=== PATIENT | female | born 1950 | race African-American/Black ===

== ENCOUNTER 2018-01-07 10:52 | Inpatient (IN) | payer OTHER ==
[2018-01-07 17:44] VITALS: BMI 21.9
[2018-01-07 17:52] LABS: ALANINE AMINOTRANSFERASE 121 Units/L (12-78); ALBUMIN 3.3 g/dL (3.4-5.0); ALKALINE PHOSPHATASE 133 Units/L (46-116); ASPARTATE AMINO TRANSFERASE 74 Units/L (15-37); BLOOD UREA NITROGEN 16 mg/dL (7-18); CALCIUM 9.1 mg/dL (8.5-10.1); CARBON DIOXIDE 26.6 mmol/L (21-32); CHLORIDE 106 mmol/L (98-107); COR CA(FOR HYPOALB) 9.7 mg/dL (8.5-10.1); COR NA(FOR HYPERGLY) 143 mmol/L (136-145); CREATININE 0.71 mg/dL (0.55-1.02); SODIUM 142 mmol/L (136-145); TOTAL PROTEIN 8.2 g/dL (6.4-8.2); eGFR BLACK RACES > 60 (>60); eGFR NON BLACK RACES > 60 (>60)
[2018-01-07] MEDS: ECOTRIN TAB 325 MG PO SCH (17:59)
[2018-01-07] MEDS: NORVASC TAB 10 MG PO SCH (18:00)
[2018-01-07] MEDS: VITAMIN D3 PO SCH (18:00)
[2018-01-07] MEDS: ZESTRIL TAB 40 MG PO SCH (18:00)
[2018-01-07] MEDS: NORCO 10/325 TAB PO SCH ×2 (18:00→20:06)
[2018-01-07 18:18] LABS: BASOPHILS % (AUTO) 0.5 % (0.2-1.0); EOSINOPHILS # (AUTO) 0.4 x10^3/uL (0.0-0.2); EOSINOPHILS % (AUTO) 7.5 % (0.9-2.9); HEMOGLOBIN 11.3 g/dL (12.0-16.0); LYMPHOCYTES # (AUTO) 1.9 X10^3/uL (1.3-2.9); LYMPHOCYTES % (AUTO) 34.4 % (21.0-51.0); MEAN CORPUSCULAR HEMOGLOBIN 32.2 pg (27.0-34.0); MEAN CORPUSCULAR HGB CONC 34.3 g/dL (33.0-35.0); MEAN CORPUSCULAR VOLUME 93.9 fL (80.0-100.0); MEAN PLATELET VOLUME 6.7 fL (7.4-11.0); MONOCYTES # (AUTO) 0.5 x10^3/uL (0.3-0.8); MONOCYTES % (AUTO) 8.3 % (0.0-13.0); NEUTROPHILS # (AUTO) 2.7 x10^3/uL (2.2-4.8); NEUTROPHILS % (AUTO) 49.3 % (42.0-75.0); PLATELET COUNT 464 X10^3/uL (150.0-450.0); RED BLOOD COUNT 3.52 X10^6/uL (3.5-5.4); RED CELL DISTRIBUTION WIDTH 12.8 % (11.6-16.5); WHITE BLOOD COUNT 5.4 X10^3/uL (3.6-10.0)
[2018-01-07] MEDS: NS 1000 ML 1,000 ML IV SCH (18:46)
[2018-01-07] MEDS: COLACE CAP 100 MG PO PRN (20:06)
[2018-01-07] MEDS: ZANAFLEX PO SCH (20:06)
[2018-01-07] MEDS: LIPITOR TAB 40 MG PO SCH (20:06)
[2018-01-07] MEDS: MILK OF MAGNESIA PO PRN (20:06)
[2018-01-07] MEDS: KEPPRA TAB 500 MG PO SCH (20:07)
[2018-01-07 21:25] LABS: BILIRUBIN,URINE NEGATIVE (NEGATIVE); BLOOD/HEMOGLOBIN,URINE 1+ (NEGATIVE); GLUCOSE, URINE NEGATIVE (NEGATIVE); KETONES,URINE NEGATIVE (NEGATIVE); LEUKOCYTE ESTERASE ,URINE 1+ (NEGATIVE); NITRITES,URINE NEGATIVE (NEGATIVE); PROTEIN,URINE NEGATIVE (NEGATIVE); UROBILINOGEN,URINE 2+ (NORMAL)
[2018-01-07 21:32] LABS: APPEARANCE,URINE HAZY (CLEAR); COLOR,URINE YELLOW (YELLOW)
[2018-01-07 21:33] LABS: AMORPHOUS SEDIMENT,UR 3+ /HPF (NEGATIVE); BACTERIA,URINE TRACE /HPF (NEGATIVE); SQUAMOUS EPITHELIAL CELL,UR FEW /HPF (NEGATIVE)
[2018-01-08] MEDS: RESTORIL CAP 15 MG PO PRN ×2 (00:46→20:44)
[2018-01-08 05:22] LABS: BASOPHILS % (AUTO) 0.9 % (0.2-1.0); EOSINOPHILS # (AUTO) 0.4 x10^3/uL (0.0-0.2); EOSINOPHILS % (AUTO) 8.1 % (0.9-2.9); HEMATOCRIT 28.9 % (36.0-47.0); HEMOGLOBIN 9.9 g/dL (12.0-16.0); LYMPHOCYTES # (AUTO) 2.1 X10^3/uL (1.3-2.9); LYMPHOCYTES % (AUTO) 45.1 % (21.0-51.0); MEAN CORPUSCULAR HEMOGLOBIN 32.1 pg (27.0-34.0); MEAN CORPUSCULAR HGB CONC 34.2 g/dL (33.0-35.0); MEAN CORPUSCULAR VOLUME 93.8 fL (80.0-100.0); MEAN PLATELET VOLUME 6.9 fL (7.4-11.0); MONOCYTES # (AUTO) 0.3 x10^3/uL (0.3-0.8); MONOCYTES % (AUTO) 6.9 % (0.0-13.0); NEUTROPHILS # (AUTO) 1.8 x10^3/uL (2.2-4.8); PLATELET COUNT 393 X10^3/uL (150.0-450.0); RED BLOOD COUNT 3.08 X10^6/uL (3.5-5.4); RED CELL DISTRIBUTION WIDTH 12.8 % (11.6-16.5); WHITE BLOOD COUNT 4.7 X10^3/uL (3.6-10.0)
[2018-01-08 05:25] LABS: ALANINE AMINOTRANSFERASE 128 Units/L (12-78); ALBUMIN 2.5 g/dL (3.4-5.0); ALKALINE PHOSPHATASE 99 Units/L (46-116); ASPARTATE AMINO TRANSFERASE 86 Units/L (15-37); BLOOD UREA NITROGEN 14 mg/dL (7-18); CALCIUM 8.4 mg/dL (8.5-10.1); CHLORIDE 109 mmol/L (98-107); COR CA(FOR HYPOALB) 9.6 mg/dL (8.5-10.1); CREATININE 0.61 mg/dL (0.55-1.02); SODIUM 143 mmol/L (136-145); TOTAL PROTEIN 6.3 g/dL (6.4-8.2); eGFR BLACK RACES > 60 (>60); eGFR NON BLACK RACES > 60 (>60)
[2018-01-08] MEDS: NS 1000 ML 1,000 ML IV SCH ×2 (05:35→19:36)
[2018-01-08] MEDS: NORCO 10/325 TAB PO SCH (08:00)
[2018-01-08] MEDS: ECOTRIN TAB 325 MG PO SCH (09:25)
[2018-01-08] MEDS: KEPPRA TAB 500 MG PO SCH ×2 (09:25→20:42)
[2018-01-08] MEDS: ZESTRIL TAB 40 MG PO SCH (09:26)
[2018-01-08] MEDS: NORVASC TAB 10 MG PO SCH (09:27)
[2018-01-08] MEDS: VITAMIN D3 PO SCH (09:27)
[2018-01-08] MEDS: VOLTAREN 1 % GEL MULTI DOSE TUBE TOP SCH ×3 (13:15→20:45)
[2018-01-08] MEDS: NORCO 10/325 TAB PO PRN ×2 (13:28→19:36)
--- NOTE | 2018-01-08 20:27 | DR.H&P ---
H&P - History & Physical for Day of: H&P Date: 01/07/18 - Chief Complaint Chief Complaint: GENERALIZED WEAKNESS, PAIN, FALLS - Allergies Allergies/Adverse Reactions: Allergies Allergy/AdvReac Type Severity Reaction Status Date / Time No Known Drug Allergies Allergy Verified 01/07/18 16:43 - History of Present Illness History of Present Illness: IS A 67 YEAR OLD PATIENT OF OURS WHO PRESENTED TO THE OFFICE WITH AN INCREASE IN GENERALIZED WEAKNESS, INCREASED FALLS, AND AN INCREASE IN JOINT PAIN. PATIENTS DAUGHTER REPORTS THAT SHE HAS ALSO HAD INCREASED CONFUSION AND ALTERED MENTAL STATUS FOR APPROXIMATELY ONE WEEK. PATIENT CURRENTLY LIVES AT HOME WITH HER BAUTISTAER. PATIENT HAS A HISTORY SIGNIFICANT FOR CVA WITH LEFT SIDED WEAKNESS, SEIZURES, HTN, SLEEP APNEA, ARTHRITIS, HISTORY OF COLON CANCER, ANXIETY/DEPRESSION, AND CHOLECYSTECTOMY. AUDREY REPORTS THAT HER FIRST CVA WAS IN 2008 AND HER MOST RECENT CVA WAS IN SEPTEMBER 2017. PATIENTS DAUGHTER REPORTS THAT SHE IS HAVING DIFFICULTY CONTINUING TO CARE FOR PATIENT AT HOME AND REQUEST PLACEMENT IN A SNF CARE FACILITY. ON EXAMINATION, DECREASED SKIN TURGOR IS NOTED. HEART IS REGULAR IN RATE AND RHYTHM. BILATERAL LUNGS ARE NOTED WITH DIMINISHED LUNG SOUNDS THROGHOUT. ABDOMEN IS ROUND, SOFT, AND NOTED WITH MILD SUPRAPUBIC TENDERNESS. NORMAL BOWEL SOUNDS NOTED IN ALL QUADRANTS. SHE IS NOTED WITH MODERATE WEAKNESS TO THE LEFT UPPER AND LEFT LOWER EXTREMITY. WE PLAN TO ADMIT PATIENT FOR FURTHER EVALUATION AND TREATMENT. WE WILL OBTAIN LABS ON ADMISSION. SHE WILL BE START ON NORMAL SALINE AT 75ML/HR AND WE WILL RESUME HER HOME MEDICATIONS. OTHERWISE, WE WILL FOLLOW UP WITH AM LABS AND CONTINUE TO MONITOR PATIENT. - Past Medical History Past Medical History: Anxiety, Arthritis, CVA, Depression, Hypertension, Seizures, Sleep Apnea Additional Medical History: COLON CANCER - Past Surgical History Surgical History: Cholecystectomy Additional Surgical History: COLON CANCER REMOVED - Family History Family Medical History: Diabetes Mellitus, Hypertension - Social History Does patient currently use any type of tobacco product: No Have you used tobacco products in the last 12 months: No Type of Tobacco Use: None Does any household member use tobacco: No Alcohol Use: None Drug Use: None - Medications Home Medications: Amlodipine Besylate 1 tab PO DAILY 01/07/18 [History Confirmed 01/07/18] Aspirin EC [ASPIRIN EC 81 MG *] 1 tab PO DAILY 01/07/18 [History Confirmed 01/07] Baclofen 1 tab PO TID 01/07/18 [History Confirmed 01/07/18] Cholecalciferol [Vitamin D3] 1 tab PO DAILY 01/07/18 [History Confirmed 01/07/18 ] Gabapentin [NEURONTIN CAP 300 mg *] 1 tab PO TID 01/07/18 [History Confirmed ] Hydrocodone-Acet 10/325 mg [NORCO 10 MG/325 MG *] 1 tab PO TID PRN 01/07/18 [ History Confirmed 01/07/18] Levetiracetam [Keppra 750 mg] 1 tab PO BID 01/07/18 [History Confirmed 01/07/18] Lisinopril [ZESTRIL *] 1 tab PO DAILY 01/07/18 [History Confirmed 01/07/18] Sennosides/Docusate Sodium [Docusate Sodium & Senna tab] 100 mg PO DAILY PRN [History Confirmed 01/07/18] Tizanidine HCl [Zanaflex 2 mg] 1 mg PO HS 01/07/18 [History Confirmed 01/07/18] - Review of Systems Constitutional: Weakness, Malaise. denies: Fever, Chills, Sweats Eyes: No Symptoms Reported ENT: No Symptoms Reported Respiratory: No Symptoms Reported. denies: Cough, Dry, Sputum, Wheezing Cardiovascular: No Symptoms Reported Gastrointestinal: Abdominal Pain Genitourinary: No Symptoms Reported Musculoskeletal: Other (LEFT ARM/LEG WEAKNESS FROM CVA, INCREASED JOINT PAIN ) Skin: No Symptoms Reported Neurological: No Symptoms Reported, Weakness - Physical Exam Vital Signs: Temperature 98.8 F Pulse Rate [Right Brachial] 52 Respiratory Rate 18 Blood Pressure [Right Arm] 159/86 O2 Sat by Pulse Oximetry 94 Oriented: Person Eyes: Normal Ear: Normal Nose: Normal Throat: Normal Respiratory: Diminished Throughout Cardiovascular: Normal. negative: S3, S4, Murmur, Edema : Normal Auscultation: Bowel Sounds: Normal Palpation: Normal Tenderness: Suprapubic, Mild. negative: Rebound, Guarding, Rigidity Skin: Decreased Turgur Musculoskeletal: Back:Lumbar, Tender (GENERALIZED JOINT PAIN ), Instability Psychiatric: Anxiety, Depression Mood Description: Anxious Affect: Anxious, Depressed Speech Pattern: Clear - Assessment/Plan (1) Generalized weakness Status: Acute Plan: ADMIT, NORMAL SALINE AT 75ML/HR, PHYSICAL THERAPY CONSULT (2) History of CVA with residual deficit Status: Acute Plan: PHYSICAL THERAPY CONSULT, CONTINUE HOME MEDICATIONS (3) Altered mental status Qualifiers: Altered mental status type: transient alteration of awareness Qualified Code(s): R40.4 - Transient alteration of awareness Status: Acute Plan: OBTAIN LABS, CONTINUE TO MONITOR (4) Joint pain Qualifiers: Joint pain location: unspecified Qualified Code(s): M25.50 - Pain in unspecified joint Status: Acute Plan: NORCO 10/325MG QID PRN, VOLTAREN GEL QID, CONTINUE TO MONITOR (5) Hypertension Qualifiers: Hypertension type: essential hypertension Qualified Code(s): I10 - Essential (primary) hypertension Status: Acute Plan: CONTINUE NORVASC, CONTINUE ZESTRIL, CONTINUE TO MONITOR
[2018-01-08] MEDS: MILK OF MAGNESIA PO PRN (20:42)
[2018-01-08] MEDS: COLACE CAP 100 MG PO PRN (20:43)
[2018-01-08] MEDS: LIPITOR TAB 40 MG PO SCH (20:44)
[2018-01-08] MEDS: ZANAFLEX PO SCH (20:45)
[2018-01-08] MEDS: LIORESAL PO SCH (21:02)
--- NOTE | 2018-01-08 22:25 | RAD ---
Chest, one view Indication: Shortness of breath Comparison: None Findings: Heart size is normal. There is mild peribronchial thickening. There is mild atelectasis wit hin the mid right lung. The remainder of the lungs are clear. No pleural effusion or pneumothorax adriano ntified. Impression: Mild peribronchial thickening, suggestive for bronchitis. Reported By:
[2018-01-09] MEDS: NORCO 10/325 TAB PO PRN ×2 (00:21→05:36)
[2018-01-09] MEDS: LIORESAL PO SCH ×3 (05:37→21:14)
[2018-01-09 06:23] LABS: BASOPHILS % (AUTO) 0.5 % (0.2-1.0); EOSINOPHILS # (AUTO) 0.2 x10^3/uL (0.0-0.2); EOSINOPHILS % (AUTO) 4.3 % (0.9-2.9); HEMATOCRIT 35.3 % (36.0-47.0); LYMPHOCYTES # (AUTO) 1.8 X10^3/uL (1.3-2.9); LYMPHOCYTES % (AUTO) 31.8 % (21.0-51.0); MEAN CORPUSCULAR HEMOGLOBIN 31.7 pg (27.0-34.0); MEAN CORPUSCULAR HGB CONC 33.9 g/dL (33.0-35.0); MEAN CORPUSCULAR VOLUME 93.4 fL (80.0-100.0); MEAN PLATELET VOLUME 6.8 fL (7.4-11.0); MONOCYTES # (AUTO) 0.3 x10^3/uL (0.3-0.8); MONOCYTES % (AUTO) 5.6 % (0.0-13.0); NEUTROPHILS # (AUTO) 3.3 x10^3/uL (2.2-4.8); NEUTROPHILS % (AUTO) 57.8 % (42.0-75.0); PLATELET COUNT 466 X10^3/uL (150.0-450.0); RED BLOOD COUNT 3.78 X10^6/uL (3.5-5.4); RED CELL DISTRIBUTION WIDTH 12.4 % (11.6-16.5); WHITE BLOOD COUNT 5.8 X10^3/uL (3.6-10.0)
[2018-01-09 06:31] LABS: ALANINE AMINOTRANSFERASE 119 Units/L (12-78); ALBUMIN 3.1 g/dL (3.4-5.0); ALKALINE PHOSPHATASE 105 Units/L (46-116); ASPARTATE AMINO TRANSFERASE 61 Units/L (15-37); BLOOD UREA NITROGEN 11 mg/dL (7-18); CALCIUM 8.9 mg/dL (8.5-10.1); CARBON DIOXIDE 26.7 mmol/L (21-32); CHLORIDE 103 mmol/L (98-107); COR CA(FOR HYPOALB) 9.6 mg/dL (8.5-10.1); CREATININE 0.64 mg/dL (0.55-1.02); SODIUM 139 mmol/L (136-145); TOTAL PROTEIN 7.7 g/dL (6.4-8.2); eGFR BLACK RACES > 60 (>60); eGFR NON BLACK RACES > 60 (>60)
[2018-01-09] MEDS: KEPPRA TAB 500 MG PO SCH ×2 (09:44→21:15)
[2018-01-09] MEDS: VITAMIN D3 PO SCH (09:45)
[2018-01-09] MEDS: NORVASC TAB 10 MG PO SCH (09:45)
[2018-01-09] MEDS: ZESTRIL TAB 40 MG PO SCH (09:45)
[2018-01-09] MEDS: ECOTRIN TAB 325 MG PO SCH (09:45)
[2018-01-09] MEDS: VOLTAREN 1 % GEL MULTI DOSE TUBE TOP SCH ×4 (09:46→21:18)
[2018-01-09] MEDS: NS 1000 ML 1,000 ML IV SCH (13:14)
[2018-01-09] MEDS: ZANAFLEX PO SCH (21:14)
[2018-01-09] MEDS: LIPITOR TAB 40 MG PO SCH (21:15)
[2018-01-10] MEDS: NS 1000 ML 1,000 ML IV SCH ×3 (04:36→23:50)
[2018-01-10 06:48] LABS: BASOPHILS # (AUTO) 0.1 X10^3/uL (0.0-0.1); BASOPHILS % (AUTO) 0.9 % (0.2-1.0); EOSINOPHILS # (AUTO) 0.5 x10^3/uL (0.0-0.2); EOSINOPHILS % (AUTO) 7.5 % (0.9-2.9); HEMATOCRIT 32.8 % (36.0-47.0); HEMOGLOBIN 10.9 g/dL (12.0-16.0); LYMPHOCYTES # (AUTO) 2.2 X10^3/uL (1.3-2.9); LYMPHOCYTES % (AUTO) 36.1 % (21.0-51.0); MEAN CORPUSCULAR HEMOGLOBIN 31.5 pg (27.0-34.0); MEAN CORPUSCULAR HGB CONC 33.3 g/dL (33.0-35.0); MEAN CORPUSCULAR VOLUME 94.8 fL (80.0-100.0); MEAN PLATELET VOLUME 7.9 fL (7.4-11.0); MONOCYTES # (AUTO) 0.6 x10^3/uL (0.3-0.8); MONOCYTES % (AUTO) 9.6 % (0.0-13.0); NEUTROPHILS # (AUTO) 2.8 x10^3/uL (2.2-4.8); NEUTROPHILS % (AUTO) 45.9 % (42.0-75.0); PLATELET COUNT 346 X10^3/uL (150.0-450.0); RED BLOOD COUNT 3.46 X10^6/uL (3.5-5.4); RED CELL DISTRIBUTION WIDTH 12.8 % (11.6-16.5)
[2018-01-10 07:01] LABS: ALANINE AMINOTRANSFERASE 89 Units/L (12-78); ALBUMIN 2.8 g/dL (3.4-5.0); ALKALINE PHOSPHATASE 92 Units/L (46-116); ASPARTATE AMINO TRANSFERASE 38 Units/L (15-37); BLOOD UREA NITROGEN 20 mg/dL (7-18); CARBON DIOXIDE 23.2 mmol/L (21-32); CHLORIDE 107 mmol/L (98-107); CREATININE 0.64 mg/dL (0.55-1.02); SODIUM 140 mmol/L (136-145); eGFR BLACK RACES > 60 (>60); eGFR NON BLACK RACES > 60 (>60)
[2018-01-10] MEDS: NORVASC TAB 10 MG PO SCH (09:41)
[2018-01-10] MEDS: VITAMIN D3 PO SCH (09:41)
[2018-01-10] MEDS: KEPPRA TAB 500 MG PO SCH ×2 (09:41→20:36)
[2018-01-10] MEDS: ECOTRIN TAB 325 MG PO SCH (09:41)
[2018-01-10] MEDS: ZESTRIL TAB 40 MG PO SCH (09:41)
[2018-01-10] MEDS: VOLTAREN 1 % GEL MULTI DOSE TUBE TOP SCH ×4 (09:42→20:37)
[2018-01-10] MEDS: LIORESAL PO SCH ×3 (14:06→21:30)
[2018-01-10] MEDS: NORCO 10/325 TAB PO PRN ×2 (14:08→20:38)
[2018-01-10] MEDS: LIPITOR TAB 40 MG PO SCH (20:36)
[2018-01-10] MEDS: RESTORIL CAP 15 MG PO PRN (20:38)
[2018-01-10] MEDS: ZANAFLEX PO SCH (20:38)
[2018-01-10] MEDS: MILK OF MAGNESIA PO PRN (20:47)
[2018-01-10] MEDS: COLACE CAP 100 MG PO PRN (20:48)
[2018-01-11] MEDS: LIORESAL PO SCH ×3 (05:24→21:00)
[2018-01-11] MEDS: NORCO 10/325 TAB PO PRN ×2 (05:57→14:38)
[2018-01-11 06:11] LABS: BASOPHILS % (AUTO) 0.5 % (0.2-1.0); EOSINOPHILS # (AUTO) 0.3 x10^3/uL (0.0-0.2); EOSINOPHILS % (AUTO) 6.2 % (0.9-2.9); HEMATOCRIT 32.6 % (36.0-47.0); HEMOGLOBIN 11.1 g/dL (12.0-16.0); LYMPHOCYTES # (AUTO) 2.3 X10^3/uL (1.3-2.9); LYMPHOCYTES % (AUTO) 44.9 % (21.0-51.0); MEAN CORPUSCULAR HEMOGLOBIN 31.8 pg (27.0-34.0); MEAN CORPUSCULAR VOLUME 93.5 fL (80.0-100.0); MEAN PLATELET VOLUME 6.9 fL (7.4-11.0); MONOCYTES # (AUTO) 0.3 x10^3/uL (0.3-0.8); MONOCYTES % (AUTO) 5.7 % (0.0-13.0); NEUTROPHILS # (AUTO) 2.2 x10^3/uL (2.2-4.8); NEUTROPHILS % (AUTO) 42.7 % (42.0-75.0); PLATELET COUNT 435 X10^3/uL (150.0-450.0); RED BLOOD COUNT 3.48 X10^6/uL (3.5-5.4); RED CELL DISTRIBUTION WIDTH 12.7 % (11.6-16.5); WHITE BLOOD COUNT 5.2 X10^3/uL (3.6-10.0)
--- NOTE | 2018-01-11 06:39 | RAD ---
HISTORY: Shortness of breath Study: Chest AP portable Comparison: 01/08/2018 Findings: The heart is mildly enlarged. No congestive heart failure is noted. No acute alveolar infiltrates are identified. No pleural effusions are present. There is subsegmental atelectasis in the right mid ranjan g abutting the minor fissure. There is minimal left lower lobe subsegmental atelectasis. There is fredy e mild peribronchial thickening suggestive of bronchitis unchanged from the prior examination. The mariia ny thorax is unremarkable. IMPRESSION: Mild cardiomegaly without congestive heart failure Mild peribronchial thickening suggestive of bronchitis Reported By:
[2018-01-11 06:40] LABS: ALANINE AMINOTRANSFERASE 82 Units/L (12-78); ALBUMIN 2.8 g/dL (3.4-5.0); ALKALINE PHOSPHATASE 96 Units/L (46-116); ASPARTATE AMINO TRANSFERASE 43 Units/L (15-37); BLOOD UREA NITROGEN 16 mg/dL (7-18); CALCIUM 8.5 mg/dL (8.5-10.1); CARBON DIOXIDE 26.7 mmol/L (21-32); CHLORIDE 107 mmol/L (98-107); COR CA(FOR HYPOALB) 9.5 mg/dL (8.5-10.1); CREATININE 0.56 mg/dL (0.55-1.02); SODIUM 141 mmol/L (136-145); TOTAL PROTEIN 7.1 g/dL (6.4-8.2); eGFR BLACK RACES > 60 (>60); eGFR NON BLACK RACES > 60 (>60)
--- NOTE | 2018-01-11 08:30 | PCM.PROG ---
Progress Note - Progress Note for Day of Date: 01/08/18 - Subjective Subjective: WAS ADMITTED FOR GENERALIZED WEAKNESS, INCREASED FALLS, ALTERED MENTAL STATUS, AND GENERALIZED PAIN. TODAY, SHE IS LYING IN BED ON MORNING ROUNDS. SHE IS ALERT TO PERSON, BUT IS NOT AWARE OF TIME OR HER LOCATION. SHE CONTINUES WITH COMPLAINTS OF PAIN ALL OVER. ON EXAMINATION, HEART IS REGULAR IN RATE AND RHYTHM. BILATERAL LUNGS ARE NOTED WITH DIMINISHED LUNG SOUNDS THROUGHOUT. ABDOMEN IS ROUND, SOFT, AND NOTED WITH MILD SUPRAPUYBID TENDERNESS. THERE IS WEAKNESS NOTED TO THE LEFT UPPER AND LOWER EXTREMITIES. THIS IS THE SIDE THAT THE STROKE AFFECTED. HER VITALS THIS MORNING ARE 98.2-56- 18-98%-130/60. LABS WERE OBTAINED. ABNORMAL LAB VALUES INCLUDE THE FOLLOWING: RBC 3.08, HGB 9.9, HCT 28.9, CHLORIDE 109, GLUCOSE 103, CALCIUM 8.4, AST 86, ALT 128, TOTAL PROTEIN 6.3, ALBUMIN 2.5. TODAY, WE WILL RESUME HOME MEDICATIONS AND START PATIENT ON A DURAGESIC 25MCG PATCH. OTHERWISE, WE WILL CONTINUE WITH CURRENT PLAN OF CARE. WE PLAN TO FOLLOW UP WITH AM LABS AND CONTINUE TO MONITOR PATIENT. - Past Medical Family Social History Past Med/Fam/Surg Hx: No changes since H&P Allergies: Allergies No Known Drug Allergies Allergy (Verified 01/07/18 16:43) - Review of Systems ROS: No change since H&P - Vital Signs and I&O's Vital Signs: Temperature 97.0 F Pulse Rate [Right Brachial] 46 Respiratory Rate 20 Blood Pressure [Right Arm] 164/72 O2 Sat by Pulse Oximetry 98 Intake and Output: Intake & Output 01/08/18 01/09/18 01/10/18 01/11/18 11:59 11:59 11:59 11:59 Intake Total 625 2100 1440 2683 Output Total 450 Balance 625 1650 1440 2683 - Physical Exam Oriented: Person Eyes: Normal Ear: Normal Nose: Normal Throat: Normal Respiratory: Generalized, Diminished Cardiovascular: Normal. negative: S3, S4, Murmur, Edema : Normal Auscultation: Bowel Sounds: Normal Palpation: Normal Tenderness: Suprapubic, Mild. negative: Rebound, Guarding, Rigidity Skin: Decreased Turgur Musculoskeletal: Back:Lumbar, Tender (GENERALIZED JOINT PAIN ), Instability Psychiatric: Anxiety, Depression Mood Description: Anxious Affect: Anxious, Depressed Speech Pattern: Clear, Appropriate - Laboratory and Diagnostics Result Diagrams: 01/11/18 05:49 01/11/18 05:49 Labs: Laboratory WBC 5.2 X10^3/uL (3.6-10.0) 01/11/18 05:49 RBC 3.48 X10^6/uL (3.5-5.4) L 01/11/18 05:49 Hgb 11.1 g/dL (12.0-16.0) L 01/11/18 05:49 Hct 32.6 % (36.0-47.0) L 01/11/18 05:49 MCV 93.5 fL (80.0-100.0) 01/11/18 05:49 MCH 31.8 pg (27.0-34.0) 01/11/18 05:49 MCHC 34.0 g/dL (33.0-35.0) 01/11/18 05:49 RDW 12.7 % (11.6-16.5) 01/11/18 05:49 Plt Count 435 X10^3/uL (150.0-450.0) 01/11/18 05:49 MPV 6.9 fL (7.4-11.0) L 01/11/18 05:49 Neut % (Auto) 42.7 % (42.0-75.0) 01/11/18 05:49 Lymph % (Auto) 44.9 % (21.0-51.0) 01/11/18 05:49 [place] % (Auto) 5.7 % (0.0-13.0) 01/11/18 05:49 Eos % (Auto) 6.2 % (0.9-2.9) H 01/11/18 05:49 Baso % (Auto) 0.5 % (0.2-1.0) 01/11/18 05:49 Neut # (Auto) 2.2 x10^3/uL (2.2-4.8) 01/11/18 05:49 Lymph # (Auto) 2.3 X10^3/uL (1.3-2.9) 01/11/18 05:49 [place] # (Auto) 0.3 x10^3/uL (0.3-0.8) 01/11/18 05:49 Eos # (Auto) 0.3 x10^3/uL (0.0-0.2) H 01/11/18 05:49 Baso # (Auto) 0.0 X10^3/uL (0.0-0.1) 01/11/18 05:49 Absolute Nucleated RBC 0.1 /100WBC 01/11/18 05:49 Sodium 141 mmol/L (136-145) 01/11/18 05:49 Corrected Sodium TNP 01/11/18 05:49 Potassium 4.0 mmol/L (3.5-5.1) 01/11/18 05:49 Chloride 107 mmol/L (98-107) 01/11/18 05:49 Carbon Dioxide 26.7 mmol/L (21-32) 01/11/18 05:49 BUN 16 mg/dL (7-18) 01/11/18 05:49 Creatinine 0.56 mg/dL (0.55-1.02) 01/11/18 05:49 Est GFR (MDRD) Af Amer > 60 (>60) 01/11/18 05:49 Est GFR (MDRD) Non-Af > 60 (>60) 01/11/18 05:49 Glucose 86 mg/dL (65-99) 01/11/18 05:49 Calcium 8.5 mg/dL (8.5-10.1) 01/11/18 05:49 Corrected Calcium 9.5 mg/dL (8.5-10.1) 01/11/18 05:49 Total Bilirubin 0.50 mg/dL (0.2-1.0) 01/11/18 05:49 AST 43 Units/L (15-37) H 01/11/18 05:49 ALT 82 Units/L (12-78) H 01/11/18 05:49 Alkaline Phosphatase 96 Units/L (46-116) 01/11/18 05:49 Total Protein 7.1 g/dL (6.4-8.2) 01/11/18 05:49 Albumin 2.8 g/dL (3.4-5.0) L 01/11/18 05:49 Globulin 4.3 g/dL (2.5-4.5) 01/11/18 05:49 Albumin/Globulin Ratio 0.7 Ratio (1.1-2.1) L 01/11/18 05:49 Specimen Type Clean catch urine 01/07/18 21:00 Urine Color Yellow (YELLOW) 01/07/18 21:00 Urine Appearance Hazy (CLEAR) 01/07/18 21:00 Urine pH 7.0 (5.0 - 8.0) 01/07/18 21:00 Ur Specific [place] 1.010 (1.000-1.030) 01/07/18 21:00 Urine Protein Negative (NEGATIVE) 01/07/18 21:00 Urine Glucose (UA) Negative (NEGATIVE) 01/07/18 21:00 Urine Ketones Negative (NEGATIVE) 01/07/18 21:00 Urine Occult Blood 1+ (NEGATIVE) 01/07/18 21:00 Urine Nitrite Negative (NEGATIVE) 01/07/18 21:00 Urine Bilirubin Negative (NEGATIVE) 01/07/18 21:00 Urine Urobilinogen 2+ (NORMAL) 01/07/18 21:00 Ur Leukocyte Esterase 1+ (NEGATIVE) 01/07/18 21:00 Urine RBC 3-5 /HPF (NONE SEEN) 01/07/18 21:00 Urine WBC 3-5 /HPF (NONE SEEN) 01/07/18 21:00 Ur Squamous Epith Cells Few /HPF (NEGATIVE) 01/07/18 21:00 Amorphous Sediment 3+ /HPF (NEGATIVE) 01/07/18 21:00 Urine Bacteria Trace /HPF (NEGATIVE) 01/07/18 21:00 Ur Culture Indicated? No/not indicated 01/07/18 21:00 - Plan (1) Generalized weakness Status: Acute Plan: ADMIT, NORMAL SALINE AT 75ML/HR, PHYSICAL THERAPY CONSULT (2) History of CVA with residual deficit Status: Acute Plan: PHYSICAL THERAPY CONSULT, CONTINUE HOME MEDICATIONS (3) Altered mental status Status: Acute Qualifiers: Altered mental status type: transient alteration of awareness Qualified Code(s): R40.4 - Transient alteration of awareness Plan: OBTAIN LABS, CONTINUE TO MONITOR (4) Joint pain Status: Acute Qualifiers: Joint pain location: unspecified Qualified Code(s): M25.50 - Pain in unspecified joint Plan: DURAGESIC PATCH 25MGC Q72HR, NORCO 10/325MG QID PRN, VOLTAREN GEL QID, CONTINUE TO MONITOR (5) Hypertension Status: Acute Qualifiers: Hypertension type: essential hypertension Qualified Code(s): I10 - Essential (primary) hypertension Plan: CONTINUE NORVASC, CONTINUE ZESTRIL, CONTINUE TO MONITOR
[2018-01-11] MEDS: ECOTRIN TAB 325 MG PO SCH (09:41)
[2018-01-11] MEDS: VOLTAREN 1 % GEL MULTI DOSE TUBE TOP SCH ×4 (09:42→20:57)
[2018-01-11] MEDS: ZESTRIL TAB 40 MG PO SCH (09:42)
[2018-01-11] MEDS: NORVASC TAB 10 MG PO SCH (09:42)
[2018-01-11] MEDS: KEPPRA TAB 500 MG PO SCH ×2 (09:42→20:57)
[2018-01-11] MEDS: VITAMIN D3 PO SCH (11:57)
[2018-01-11] MEDS: NS 1000 ML 1,000 ML IV SCH (14:40)
[2018-01-11] MEDS: LIPITOR TAB 40 MG PO SCH (20:59)
[2018-01-11] MEDS: ZANAFLEX PO SCH (20:59)
--- NOTE | 2018-01-11 21:08 | PCM.PROG ---
Progress Note - Progress Note for Day of Date: 01/11/18 - Subjective Subjective: WAS ADMITTED FOR GENERALIZED WEAKNESS, INCREASED FALLS, ALTERED MENTAL STATUS, AND GENERALIZED PAIN. TODAY, SHE IS LYING IN BED ON MORNING ROUNDS. SHE IS ALERT TO PERSON, BUT IS NOT AWARE OF TIME OR HER LOCATION. SHE CONTINUES WITH COMPLAINTS OF WEAKNESS AND GENERALIZED PAIN. STAFF REPORTS THAT PATIENTS HEART RATE HAS BEEN IN THE 40s AND HAS OCCASIONALLY FELL INTO THE 30s. THEY REPORT THAT PATIENT HAS BEEN ASYMPTOMATIC. ON EXAMINATION, HEART IS REGULAR IN RATE AND RHYTHM. BILATERAL LUNGS ARE NOTED WITH DIMINISHED LUNG SOUNDS THROUGHOUT. ABDOMEN IS ROUND, SOFT, AND NOTED WITH MILD SUPRAPUYBID TENDERNESS. THERE IS WEAKNESS NOTED TO THE LEFT UPPER AND LOWER EXTREMITIES. THIS IS THE SIDE THAT THE STROKE AFFECTED. HER VITALS THIS MORNING ARE 97.7-43- 18-98%-172/72. LABS WERE OBTAINED. ABNORMAL LAB VALUES INCLUDE THE FOLLOWING: RBC 3.48, HGB 11.1, HCT 32.6, AST 43, ALT 82, ALBUMIN 2.8. A CHEST XRAY WAS OBTAINED TODAY AND REVEALED MILD CARDIOMEGALY WITHOUT CONGESTIVE HEART FAILURE. MILD PERIBRONCHIAL THICKENING SUGGESTIVE OF BRONCHITIS. TODAY, WE WILL OBTAIN AN EKG. CASE MANAGEMENT IS ARRANGING FOR PLACEMENT AT [facility]. OTHERWISE, WE WILL CONTINUE WITH CURRENT PLAN OF CARE TODAY. WE PLAN TO FOLLOW UP WITH AM LABS AND CONTINUE TO MONITOR PATIENT. - Past Medical Family Social History Past Med/Fam/Surg Hx: No changes since H&P Allergies: Allergies No Known Drug Allergies Allergy (Verified 01/07/18 16:43) - Review of Systems ROS: No change since H&P - Vital Signs and I&O's Vital Signs: Temperature 98.8 F Pulse Rate [Right Brachial] 56 Respiratory Rate 20 Blood Pressure [Right Arm] 143/70 O2 Sat by Pulse Oximetry 96 Intake and Output: Intake & Output 01/09/18 01/10/18 01/11/18 01/12/18 11:59 11:59 11:59 11:59 Intake Total 2100 1440 2683 1080 Output Total 450 Balance 1650 1440 2683 1080 - Physical Exam Oriented: Person Eyes: Normal Ear: Normal Nose: Normal Throat: Normal Respiratory: Generalized, Diminished Cardiovascular: Normal. negative: S3, S4, Murmur, Edema : Normal Auscultation: Bowel Sounds: Normal Palpation: Normal Tenderness: Suprapubic, Mild. negative: Rebound, Guarding, Rigidity Skin: Normal Musculoskeletal: Back:Lumbar, Tender (GENERALIZED JOINT PAIN ), Instability Psychiatric: Anxiety, Depression Mood Description: Anxious Affect: Anxious, Depressed Speech Pattern: Clear, Appropriate - Laboratory and Diagnostics Result Diagrams: 01/11/18 05:49 01/11/18 05:49 Labs: Laboratory WBC 5.2 X10^3/uL (3.6-10.0) 01/11/18 05:49 RBC 3.48 X10^6/uL (3.5-5.4) L 01/11/18 05:49 Hgb 11.1 g/dL (12.0-16.0) L 01/11/18 05:49 Hct 32.6 % (36.0-47.0) L 01/11/18 05:49 MCV 93.5 fL (80.0-100.0) 01/11/18 05:49 MCH 31.8 pg (27.0-34.0) 01/11/18 05:49 MCHC 34.0 g/dL (33.0-35.0) 01/11/18 05:49 RDW 12.7 % (11.6-16.5) 01/11/18 05:49 Plt Count 435 X10^3/uL (150.0-450.0) 01/11/18 05:49 MPV 6.9 fL (7.4-11.0) L 01/11/18 05:49 Neut % (Auto) 42.7 % (42.0-75.0) 01/11/18 05:49 Lymph % (Auto) 44.9 % (21.0-51.0) 01/11/18 05:49 [place] % (Auto) 5.7 % (0.0-13.0) 01/11/18 05:49 Eos % (Auto) 6.2 % (0.9-2.9) H 01/11/18 05:49 Baso % (Auto) 0.5 % (0.2-1.0) 01/11/18 05:49 Neut # (Auto) 2.2 x10^3/uL (2.2-4.8) 01/11/18 05:49 Lymph # (Auto) 2.3 X10^3/uL (1.3-2.9) 01/11/18 05:49 [place] # (Auto) 0.3 x10^3/uL (0.3-0.8) 01/11/18 05:49 Eos # (Auto) 0.3 x10^3/uL (0.0-0.2) H 01/11/18 05:49 Baso # (Auto) 0.0 X10^3/uL (0.0-0.1) 01/11/18 05:49 Absolute Nucleated RBC 0.1 /100WBC 01/11/18 05:49 Sodium 141 mmol/L (136-145) 01/11/18 05:49 Corrected Sodium TNP 01/11/18 05:49 Potassium 4.0 mmol/L (3.5-5.1) 01/11/18 05:49 Chloride 107 mmol/L (98-107) 01/11/18 05:49 Carbon Dioxide 26.7 mmol/L (21-32) 01/11/18 05:49 BUN 16 mg/dL (7-18) 01/11/18 05:49 Creatinine 0.56 mg/dL (0.55-1.02) 01/11/18 05:49 Est GFR (MDRD) Af Amer > 60 (>60) 01/11/18 05:49 Est GFR (MDRD) Non-Af > 60 (>60) 01/11/18 05:49 Glucose 86 mg/dL (65-99) 01/11/18 05:49 Calcium 8.5 mg/dL (8.5-10.1) 01/11/18 05:49 Corrected Calcium 9.5 mg/dL (8.5-10.1) 01/11/18 05:49 Total Bilirubin 0.50 mg/dL (0.2-1.0) 01/11/18 05:49 AST 43 Units/L (15-37) H 01/11/18 05:49 ALT 82 Units/L (12-78) H 01/11/18 05:49 Alkaline Phosphatase 96 Units/L (46-116) 01/11/18 05:49 Total Protein 7.1 g/dL (6.4-8.2) 01/11/18 05:49 Albumin 2.8 g/dL (3.4-5.0) L 01/11/18 05:49 Globulin 4.3 g/dL (2.5-4.5) 01/11/18 05:49 Albumin/Globulin Ratio 0.7 Ratio (1.1-2.1) L 01/11/18 05:49 Specimen Type Clean catch urine 01/07/18 21:00 Urine Color Yellow (YELLOW) 01/07/18 21:00 Urine Appearance Hazy (CLEAR) 01/07/18 21:00 Urine pH 7.0 (5.0 - 8.0) 01/07/18 21:00 Ur Specific [place] 1.010 (1.000-1.030) 01/07/18 21:00 Urine Protein Negative (NEGATIVE) 01/07/18 21:00 Urine Glucose (UA) Negative (NEGATIVE) 01/07/18 21:00 Urine Ketones Negative (NEGATIVE) 01/07/18 21:00 Urine Occult Blood 1+ (NEGATIVE) 01/07/18 21:00 Urine Nitrite Negative (NEGATIVE) 01/07/18 21:00 Urine Bilirubin Negative (NEGATIVE) 01/07/18 21:00 Urine Urobilinogen 2+ (NORMAL) 01/07/18 21:00 Ur Leukocyte Esterase 1+ (NEGATIVE) 01/07/18 21:00 Urine RBC 3-5 /HPF (NONE SEEN) 01/07/18 21:00 Urine WBC 3-5 /HPF (NONE SEEN) 01/07/18 21:00 Ur Squamous Epith Cells Few /HPF (NEGATIVE) 01/07/18 21:00 Amorphous Sediment 3+ /HPF (NEGATIVE) 01/07/18 21:00 Urine Bacteria Trace /HPF (NEGATIVE) 01/07/18 21:00 Ur Culture Indicated? No/not indicated 01/07/18 21:00 - Plan (1) Generalized weakness Status: Acute Plan: ADMIT, NORMAL SALINE AT 75ML/HR, PHYSICAL THERAPY CONSULT (2) History of CVA with residual deficit Status: Acute Plan: PHYSICAL THERAPY CONSULT, CONTINUE HOME MEDICATIONS (3) Altered mental status Status: Acute Qualifiers: Altered mental status type: transient alteration of awareness Qualified Code(s): R40.4 - Transient alteration of awareness Plan: OBTAIN LABS, CONTINUE TO MONITOR (4) Joint pain Status: Acute Qualifiers: Joint pain location: unspecified Qualified Code(s): M25.50 - Pain in unspecified joint Plan: DURAGESIC PATCH 25MGC Q72HR, NORCO 10/325MG QID PRN, VOLTAREN GEL QID, CONTINUE TO MONITOR (5) Hypertension Status: Acute Qualifiers: Hypertension type: essential hypertension Qualified Code(s): I10 - Essential (primary) hypertension Plan: CONTINUE NORVASC, CONTINUE ZESTRIL, CONTINUE TO MONITOR
[2018-01-12] MEDS: LIORESAL PO SCH ×2 (05:15→05:21)
[2018-01-12] MEDS: NS 1000 ML 1,000 ML IV SCH (05:15)
[2018-01-12 06:22] LABS: BASOPHILS % (AUTO) 0.9 % (0.2-1.0); EOSINOPHILS # (AUTO) 0.4 x10^3/uL (0.0-0.2); EOSINOPHILS % (AUTO) 7.9 % (0.9-2.9); HEMATOCRIT 33.2 % (36.0-47.0); HEMOGLOBIN 11.2 g/dL (12.0-16.0); LYMPHOCYTES # (AUTO) 2.6 X10^3/uL (1.3-2.9); LYMPHOCYTES % (AUTO) 50.3 % (21.0-51.0); MEAN CORPUSCULAR HEMOGLOBIN 31.3 pg (27.0-34.0); MEAN CORPUSCULAR HGB CONC 33.8 g/dL (33.0-35.0); MEAN CORPUSCULAR VOLUME 92.5 fL (80.0-100.0); MEAN PLATELET VOLUME 8.7 fL (7.4-11.0); MONOCYTES # (AUTO) 0.3 x10^3/uL (0.3-0.8); MONOCYTES % (AUTO) 5.6 % (0.0-13.0); NEUTROPHILS # (AUTO) 1.8 x10^3/uL (2.2-4.8); NEUTROPHILS % (AUTO) 35.3 % (42.0-75.0); PLATELET COUNT 269 X10^3/uL (150.0-450.0); RED BLOOD COUNT 3.59 X10^6/uL (3.5-5.4); RED CELL DISTRIBUTION WIDTH 12.5 % (11.6-16.5); WHITE BLOOD COUNT 5.1 X10^3/uL (3.6-10.0)
[2018-01-12 06:25] LABS: ALANINE AMINOTRANSFERASE 78 Units/L (12-78); ALBUMIN 2.9 g/dL (3.4-5.0); ALKALINE PHOSPHATASE 95 Units/L (46-116); ASPARTATE AMINO TRANSFERASE 43 Units/L (15-37); BLOOD UREA NITROGEN 12 mg/dL (7-18); CALCIUM 8.8 mg/dL (8.5-10.1); CARBON DIOXIDE 26.8 mmol/L (21-32); CHLORIDE 106 mmol/L (98-107); COR CA(FOR HYPOALB) 9.7 mg/dL (8.5-10.1); CREATININE 0.55 mg/dL (0.55-1.02); SODIUM 141 mmol/L (136-145); eGFR BLACK RACES > 60 (>60); eGFR NON BLACK RACES > 60 (>60)
[2018-01-12] MEDS: ECOTRIN TAB 325 MG PO SCH (08:33)
[2018-01-12] MEDS: MILK OF MAGNESIA PO PRN (08:33)
[2018-01-12] MEDS: ZESTRIL TAB 40 MG PO SCH (08:33)
[2018-01-12] MEDS: NORCO 10/325 TAB PO PRN (08:33)
[2018-01-12] MEDS: COLACE CAP 100 MG PO PRN (08:33)
[2018-01-12] MEDS: NORVASC TAB 10 MG PO SCH (08:34)
[2018-01-12] MEDS: VITAMIN D3 PO SCH (08:34)
[2018-01-12] MEDS: KEPPRA TAB 500 MG PO SCH (08:34)
[2018-01-12] MEDS: VOLTAREN 1 % GEL MULTI DOSE TUBE TOP SCH (08:39)
[2018-01-12] MEDS ORDERED: ROCEPHIN 1 GM IV PREMIX 1 GM/50 ML IV.SOLN. IV SCH (09:00)
[2018-01-12 13:59] VITALS: BP 152/83
== END 2018-01-12 12:30 | DRG 66 ==
LOC: UNDOADMOB 10:52 → MED/SURG 10:52 → OBSVTOIN 01-09 09:00
PROVIDERS: ADMIT Internal Medicine; ATTEND Internal Medicine
DX: I63.8 Other cerebral infarction (principal); D64.89 Other specified anemias; I10 Essential (primary) hypertension; R40.4 Transient alteration of awareness; F41.8 Other specified anxiety disorders; M25.50 Pain in unspecified joint; R53.1 Weakness; R29.6 Repeated falls
CPT/HCPCS: 36415; 71045; 80053; 81001; 85025; 93005; 94760; 97535; A4216; A4222; G8978; G8979; G8987; G8988; G0378; J0696